=== PATIENT | male | born 1950 | race Caucasian/White ===

== ENCOUNTER 2019-12-29 13:49 | Outpatient (CLI) | payer MEDICARE ==
--- NOTE | 2019-12-29 15:55 | RAD ---
CHEST TWO VIEW: 12/29/19 HISTORY: Hemoptysis. COMPARISON: Radiograph from 2013. FINDINGS: Mild tortuosity of the descending thoracic aorta. Lungs are clear. No pneumothorax. No effusion. The cardiac silhouette is normal. No acute osseous abnormality. IMPRESSION: No acute intrathoracic abnormality. POS: [facility]
== END 2019-12-29 13:50 | disposition home or self-care (01) ==
LOC: BICRAD 13:49
PROVIDERS: ATTEND Family Medicine
DX: R04.2 Hemoptysis (principal)
CPT/HCPCS: 71046

== ENCOUNTER 2021-11-21 15:51 | Outpatient (CLI) | payer MEDICARE | END 2021-11-21 15:52 | disposition home or self-care (01) | LOC: BICRAD 15:51 | PROVIDERS: ATTEND Family Medicine | DX: M79.672 Pain in left foot (principal) ==